=== PATIENT | female | born 1970 | race Caucasian/White ===

== ENCOUNTER 2017-08-07 00:42 | Emergency (ER) | payer MEDICAID ==
--- NOTE | 2017-08-07 00:47 | EDPHY ---
H & P Stated Complaint: EtOH intoxication Time Seen by Provider: 08/07/17 00:44 HPI/ROS: HPI The patient presents brought in by ambulance for alcohol intoxication. She was at home with a friend drinking alcohol. She apparently drank an entire 1 L bottle of vodka throughout the course of the evening. She then had a fall down an unspecified number of stairs. Her friend was concerned and called 911. On arrival of EMS, the patient was uncooperative and combative. She did not comply with any history taking or vital sides. She had no obvious external signs of trauma.. REVIEW OF SYSTEMS Constitutional: No fever, no chills. Eyes: No discharge. ENT: No sore throat. Cardiovascular: No chest pain, no palpitations. Respiratory: No cough, no shortness of breath. Gastrointestinal: No abdominal pain, no vomiting. Genitourinary: No hematuria. Musculoskeletal: No back pain. Skin: No rashes. Neurological: No headache. PMHx: No diabetes, no hypertension Soc Hx: Housed, alcohol use PHYSICAL General Appearance: Alert, in 4 point restraints, attempting to remove restraints Eyes: Pupils equal and round no pallor or injection ENT, Mouth: Mucous membranes moist Respiratory: There are no retractions, lungs are clear to auscultation Cardiovascular: Regular rate and rhythm Gastrointestinal: Abdomen is soft and non-tender, no masses, bowel sounds normal Neurological: A&O, moves all extremities Skin: Warm and dry, no rashes Musculoskeletal: Neck is supple non tender Extremities: symmetrical, full range of motion Psychiatric: Patient is oriented X 3, she is agitated Source: Patient, EMS Exam Limitations: Intoxication - Social History Smoking Status: Unknown if ever smoked Constitutional: Initial Vital Signs Heart Rate 119 H 08/07/17 00:54 Respiratory Rate 20 08/07/17 00:54 Blood Pressure 157/109 H 08/07/17 00:54 O2 Sat (%) 95 08/07/17 00:54 O2 Delivery Mode Room Air O2 (L/minute) 2 Allergies/Adverse Reactions: codeine Allergy (Verified 08/07/17 00:53) Home Medications: Medication Instructions Recorded Doxycycline Hyclate 100 mg PO BID #14 tab 08/07/17 Medical Decision Making - Diagnostics Imaging Results: Chest x-ray one view shows possible right lower lobe infiltrate, interpreted by me, radiology interpretation is pending. CT head noncontrast is unremarkable. Differential Diagnosis: This is a 47-year-old female, unknown past medical history, brought in by ambulance from home after her friend called 911. She had a fall down stairs, unspecified number in the setting of drinking 1 L of vodka tonight. On arrival , she is uncooperative, combative, clearly intoxicated. I am unable to perform an assessment. 12:45 a.m.- I met the paramedics at the bedside to obtain their report. She will receive Versed 5 mg IM and we will attempt to move her off of the pram. 1:30 a.m.- The patient has received Versed 5 IM and an additional 2 IV. She is more calm now. However, had a coughing episode, sats dropped, is requiring a non- rebreather currently. She may have aspirated. I will order a DuoNeb and chest x-ray. 7:00 a.m.- The patient slept for several hours here. She is now awake and alert. She says she has been coughing for the last several days and was exposed to a sick relative. Her oxygen saturations are normal. Chest x-ray shows possible infiltrate. I will treat her for community-acquired pneumonia with doxycycline. [facility] for [facility]. - Data Points Laboratory Results: Laboratory Results 08/07/17 01:00 08/07/17 01:00 Medications Given: Discontinued Medications Albuterol/Ipratropium (Duoneb) 3 ml IH EDNOW ONE Stop: 08/07/17 01:39 Last Admin: 08/07/17 01:47 Dose: 3 ml Doxycycline Hyclate (Vibramycin 100 Mg Prepack#2) 1 btl TAKEHOME EDNOW ONE Stop: 08/07/17 05:31 Last Admin: 08/07/17 05:48 Dose: 1 btl Haloperidol Lactate (Haldol Injection) 5 mg IVP EDNOW ONE Stop: 08/07/17 02:09 Last Admin: 08/07/17 02:00 Dose: 5 mg Sodium Chloride (Ns) 1,000 mls @ 0 mls/hr IV EDNOW ONE; Wide Open PRN Reason: Protocol Stop: 08/07/17 02:22 Last Admin: 08/07/17 02:23 Dose: 1,000 mls Lorazepam (Ativan Injection) 2 mg IVP EDNOW ONE Stop: 08/07/17 02:02 Last Admin: 08/07/17 02:10 Dose: 2 mg Midazolam HCl (Versed) 5 mg IM EDNOW ONE Stop: 08/07/17 00:54 Last Admin: 08/07/17 01:04 Dose: 5 mg Midazolam HCl (Versed) 2 mg IVP EDNOW ONE Stop: 08/07/17 01:16 Last Admin: 08/07/17 01:17 Dose: 2 mg Departure - Departure Disposition: Home, Routine, Self-Care Clinical Impression: Cough Altered mental status Qualifiers: Altered mental status type: unspecified Qualified Code(s): R41.82 - Altered mental status, unspecified Alcoholic intoxication Qualifiers: Complication of substance-induced condition: with delirium Qualified Code(s): F10.921 - Alcohol use, unspecified with intoxication delirium Condition: Good Instructions: Doxycycline (By mouth), Alcohol Intoxication (ED) Referrals: [facility] [Outside] - As per Instructions Prescriptions: Doxycycline Hyclate 100 mg PO BID #14 tab
[2017-08-07] MEDS ORDERED: MIDAZOLAM 10 MG/2 ML VIAL IM ONE (00:53)
[2017-08-07] MEDS ORDERED: MIDAZOLAM 2 MG/2 ML VIAL ONE (01:14)
[2017-08-07] MEDS ORDERED: MIDAZOLAM 2 MG/2 ML VIAL IVP ONE (01:15)
[2017-08-07] MEDS ORDERED: IPRATROPIUM/ALBUTEROL 3 ML DEYVIAL IH ONE (01:38)
[2017-08-07] MEDS ORDERED: HALOPERIDOL LACT 5 MG/ML INJ ONE (01:49)
[2017-08-07] MEDS ORDERED: LORazepam 2 MG/ML INJ ONE (02:01)
[2017-08-07] MEDS ORDERED: LORazepam 2 MG/ML INJ IVP ONE (02:01)
[2017-08-07] MEDS ORDERED: HALOPERIDOL LACT 5 MG/ML INJ IVP ONE (02:08)
[2017-08-07] MEDS ORDERED: NS 1,000 ML IV ONE (02:21)
[2017-08-07 02:25] LABS: PLATELET COUNT 203 10^3/uL (150-400)
[2017-08-07] MEDS ORDERED: DOXYCYCLINE 100 MG PREPACK#2 BTL TAKEHOME ONE (05:30)
[2017-08-07 05:48] VITALS: O2SAT 93
[2017-08-07 07:18] VITALS: BP 120/79; PULSE 100; RESP 14; TEMP 97.5
== END 2017-08-07 07:58 | disposition home or self-care (01) ==
LOC: EDUNIT#
DX: F10.921 Alcohol use, unspecified with intoxication delirium (principal); R41.82 Altered mental status, unspecified; R05 Cough; E86.9 Volume depletion, unspecified
CPT/HCPCS: 96374; G0480; J1630; J2060; J2250

== ENCOUNTER → 2018-09-28 | Outpatient (CLI) | payer MEDICAID ==
--- NOTE | 2018-10-03 11:56 | CPEEG ---
[f rep st] ELECTROENCEPHALOGRAM DATE OF STUDY: 09/28/2018 INTERPRETATION: Normal EEG during wakefulness and sleep. There were no potentially epileptogenic ab normalities present in the recording. REPORT: This EEG contains 10 Hz alpha activity over the posterior head regions. There was no abnorm al activation at rest, during photic stimulation or hyperventilation. The patient became drowsy and fell asleep during the study. There was no abnormal activation during drowsiness, sleep, or during t imes of arousal. /[id number]/MODL
== END ==
LOC: FCPNEURO 08:20
PROVIDERS: ATTEND Physician Assistant Medical
DX: G35 Multiple sclerosis (principal); R13.10 Dysphagia, unspecified; R40.20 Unspecified coma